=== PATIENT | male | born 1980 | race African-American/Black ===

== ENCOUNTER 2018-01-31 09:12 | Emergency (ER) | payer MEDICAID ==
[~2018-01-31] VITALS: Ht 188 cm; Wt 100.0 kg
[2018-01-31] MEDS ORDERED: BACITRACIN ZINC OINT UDPKT TOP ONE (10:15)
[2018-01-31] MEDS ORDERED: HYDROCODONE/ACETAMINOPHEN 5/325MG TABLET PO ONE (10:15)
[2018-01-31] MEDS ORDERED: TETANUS, DIPHTHERIA, PERTUSSIS VAC/PF 0.5ML (>7YR OLD) IM ONE (10:15)
[2018-01-31 11:43] VITALS: BP 137/89
== END 2018-01-31 11:52 | disposition home or self-care (01) ==
LOC: ER 11:16
DX: S50.812A Abrasion of left forearm, initial encounter (principal); F17.200 Nicotine dependence, unspecified, uncomplicated; V89.2XXA Person injured in unspecified motor-vehicle accident, traffic, initial encounter; Y93.89 Activity, other specified; Y92.89 Other specified places as the place of occurrence of the external cause; Y99.8 Other external cause status
CPT/HCPCS: 90471; 90715; 99283; Z7610

== ENCOUNTER 2023-04-23 16:22 | Emergency (ER) | payer OTHER ==
[~2023-04-23] VITALS: Ht 188 cm; Wt 113.0 kg
[2023-04-23 16:26] VITALS: BP 157/97; PULSE 100; RESP 16; TEMP 98.6; O2SAT 98
== END 2023-04-23 18:54 ==
LOC: ER 16:22
DX: S93.401A Sprain of unspecified ligament of right ankle, initial encounter (principal); X58.XXXA Exposure to other specified factors, initial encounter; Y93.89 Activity, other specified; Y92.89 Other specified places as the place of occurrence of the external cause; Y99.8 Other external cause status
CPT/HCPCS: 73610; 99283